=== PATIENT | female | born 1960 | race Caucasian/White ===

== ENCOUNTER → 2017-02-01 | Outpatient (CLI) | payer BC ==
--- NOTE | 2017-02-02 12:07 | MM ---
Reason for exam: screening (asymptomatic). Last mammogram was performed 1 year and 2 months ago. History: Patient is postmenopausal. Family history of breast cancer in mother at age 52. Physical Findings: A clinical breast exam by your physician is recommended on an annual basis and results should be correlated with mammographic findings. MG Screening Mammo w CAD Bilateral CC and MLO view(s) were taken. Prior study comparison: December 14, 2015, bilateral MG screening mammo w CAD. December 01, 2014, bilateral MG screening mammo w CAD. The breast tissue is heterogeneously dense. This may lower the sensitivity of mammography. No significant changes when compared with prior studies. ASSESSMENT: Benign, BI-RAD 2 RECOMMENDATION: Routine screening mammogram of both breasts in 1 year.
== END | disposition home or self-care (01) ==
LOC: RADMAMWWP 13:57
PROVIDERS: ATTEND Obstetrics & Gynecology
DX: Z12.31 Encounter for screening mammogram for malignant neoplasm of breast (principal); Z80.3 Family history of malignant neoplasm of breast

== ENCOUNTER → 2018-03-07 | Outpatient (CLI) | payer BC ==
--- NOTE | 2018-03-08 11:00 | MM ---
Reason for exam: screening (asymptomatic). Last mammogram was performed 1 year and 1 month ago. History: Patient is postmenopausal. Family history of breast cancer in mother at age 52. Physical Findings: A clinical breast exam by your physician is recommended on an annual basis and results should be correlated with mammographic findings. MG 3D Screening Mammo W/Cad Bilateral CC and MLO view(s) were taken. Prior study comparison: February 01, 2017, bilateral MG screening mammo w CAD. December 14, 2015, bilateral MG screening mammo w CAD. The breast tissue is heterogeneously dense. This may lower the sensitivity of mammography. No suspicious abnormality. No significant changes when compared with prior studies. ASSESSMENT: Negative, BI-RAD 1 RECOMMENDATION: Routine screening mammogram of both breasts in 1 year.
== END | disposition home or self-care (01) ==
LOC: RADMAMWWP 09:01
PROVIDERS: ATTEND Obstetrics & Gynecology
DX: Z12.31 Encounter for screening mammogram for malignant neoplasm of breast (principal); Z80.3 Family history of malignant neoplasm of breast
CPT/HCPCS: 77063; 77067

== ENCOUNTER → 2018-09-13 | Outpatient (CLI) | payer BC ==
--- NOTE | 2018-09-13 08:36 | CT ---
EXAMINATION TYPE: CT brain wo con DATE OF EXAM: 09/13/2018 COMPARISON: 04/20/2016 INDICATION: Persistent daily headache DLP: 1121 mGycm, Automated exposure control for dose reduction was used. CONTRAST: None CT of the brain is performed utilizing 3 mm thick sections through the posterior fossa and 3 mm thick sections through the remaining calvarium. Study is performed within 24 hours of arrival to the hosp [facility]. No abnormal hyperdensity is present to suggest an acute intracranial hemorrhage. No mass lesion is evident. No acute infarcts are evident. Ventricles and sulci are appropriate for the patient age. Paranasal sinuses and mastoid air cells within the [id number] are clear. IMPRESSIONS: 1. Normal CT Brain
== END | disposition home or self-care (01) ==
LOC: RADCTMAIN 08:01
PROVIDERS: ATTEND Family Medicine
DX: G44.52 New daily persistent headache (NDPH) (principal); H53.9 Unspecified visual disturbance
CPT/HCPCS: 70450

== ENCOUNTER → 2019-04-17 | Outpatient (CLI) | payer BC ==
--- NOTE | 2019-04-22 09:45 | MM ---
Reason for exam: screening (asymptomatic). Last mammogram was performed 1 year and 1 month ago. History: Patient is postmenopausal. Family history of breast cancer in mother at age 52. Physical Findings: A clinical breast exam by your physician is recommended on an annual basis and results should be correlated with mammographic findings. MG 3D Screening Mammo W/Cad Bilateral CC and MLO view(s) were taken. Prior study comparison: March 07, 2018, bilateral MG 3d screening mammo w/cad. February 01, 2017, bilateral MG screening mammo w CAD. The breast tissue is heterogeneously dense. This may lower the sensitivity of mammography. No significant changes when compared with prior studies. ASSESSMENT: Negative, BI-RAD 1 RECOMMENDATION: Routine screening mammogram of both breasts in 1 year.
== END | disposition home or self-care (01) ==
LOC: RADMAMWWP 16:32
PROVIDERS: ATTEND Obstetrics & Gynecology
DX: Z12.31 Encounter for screening mammogram for malignant neoplasm of breast (principal)
CPT/HCPCS: 77063; 77067

== ENCOUNTER → 2020-07-09 | Outpatient (CLI) | payer BC ==
--- NOTE | 2020-07-09 16:11 | BD ---
EXAMINATION TYPE: Axial Bone Density DATE OF EXAM: 07/09/2020 COMPARISON: NONE CLINICAL HISTORY: 59 YR OLD FEMALE.....ICD-10 CODE: N95.1 POST MENOPAUSAL Height: 63.6 Weight: 152 FRAX RISK QUESTIONS: NOTHING TO NOTE HERE RISK FACTORS HISTORY OF: Active: YES Postmenopausal woman: YES, ABOUT AGE 48 Hyperparathyroidism: NO Adrenal Insufficiency: NO MEDICATIONS: Additional Medications: XANAX, VIT D Additional History: SLEEP ISSUES, ARTHRITIS EXAM MEASUREMENTS: Bone mineral densitometry was performed using the [employer] System. Bone mineral density as measured about the Lumbar spine is: ----- L1-L4(G/cm2): 1.334 T Score Values are as follows: ----- L1: 0.8 ----- L2: 1.2 ----- L3: 1.5 ----- L4: 1.4 ----- L1-L4: 1.3 Bone mineral density FIRST BONE DENSITY........BASELINE STUDY Bone mineral density about the R hip (g/cm2): 0.980 Bone mineral density about the L hip (g/cm2): 0.989 T Score values are as follows: -----R Neck: -0.6 -----L Neck: -0.6 -----R Total: -0.2 -----L Total: -0.1 Bone mineral density BASELINE STUDY FRAX%s: THERE IS A 6.9% CHANCE FOR A MAJOR OSTEOPOROTIC FX AND A 0.3% FOR HIP......PROBABILITY FOR FX IN 10 YRS TIME IMPRESSION: Normal (Values between +1 and -1 indicate normal bone mass). Consider repeating this study in 5 year s or sooner if there is some new clinical indication. NOTE: T-SCORE=SD OF THE YOUNG ADULT MEAN.
--- NOTE | 2020-07-12 10:33 | MM ---
Reason for exam: screening (asymptomatic). Last mammogram was performed 1 year and 3 months ago. History: Patient is postmenopausal. Family history of breast cancer in mother at age 52. Physical Findings: A clinical breast exam by your physician is recommended on an annual basis and results should be correlated with mammographic findings. MG 3D Screening Mammo W/Cad Bilateral CC and MLO view(s) were taken. Prior study comparison: April 17, 2019, bilateral MG 3d screening mammo w/cad. March 07, 2018, bilateral MG 3d screening mammo w/cad. The breast tissue is heterogeneously dense. This may lower the sensitivity of mammography. There is no discrete abnormality. No significant changes when compared with prior studies. ASSESSMENT: Negative, BI-RAD 1 RECOMMENDATION: Routine screening mammogram of both breasts in 1 year.
== END | disposition home or self-care (01) ==
LOC: RADMAMWWP 09:17
PROVIDERS: ATTEND Obstetrics & Gynecology
DX: Z12.31 Encounter for screening mammogram for malignant neoplasm of breast (principal); N95.1 Menopausal and female climacteric states; Z80.3 Family history of malignant neoplasm of breast
CPT/HCPCS: 77063; 77067; 77080

== ENCOUNTER → 2021-07-26 | Outpatient (CLI) | payer BC ==
--- NOTE | 2021-07-27 12:35 | MM ---
Reason for exam: screening (asymptomatic). Last mammogram was performed 1 year and 1 month ago. History: Patient is postmenopausal. Family history of breast cancer in mother at age 52. Took hormonal contraceptives for 10 years. Physical Findings: A clinical breast exam by your physician is recommended on an annual basis and results should be correlated with mammographic findings. MG 3D Screening Mammo W/Cad Bilateral CC and MLO view(s) were taken. Prior study comparison: July 09, 2020, bilateral MG 3d screening mammo w/cad. April 17, 2019, bilateral MG 3d screening mammo w/cad. The breast tissue is heterogeneously dense. This may lower the sensitivity of mammography. Finding: There are indeterminate calcifications in the posterior position of the right breast. New finding since July 09, 2020 and April 17, 2019. ASSESSMENT: Incomplete: need additional imaging evaluation, BI-RAD 0 RECOMMENDATION: Special view mammogram of the right breast. [facility] will attempt to contact patient to return for supplemental views.
== END | disposition home or self-care (01) ==
LOC: RADMAMWWP 09:54
PROVIDERS: ATTEND Obstetrics & Gynecology
DX: Z12.31 Encounter for screening mammogram for malignant neoplasm of breast (principal); Z80.3 Family history of malignant neoplasm of breast; Z78.0 Asymptomatic menopausal state
CPT/HCPCS: 77063; 77067

== ENCOUNTER → 2021-08-01 | Outpatient (CLI) | payer BC ==
--- NOTE | 2021-08-01 09:44 | MM ---
Reason for exam: additional evaluation requested from abnormal screening. Last mammogram was performed less than 1 month ago. History: Patient is postmenopausal. Family history of breast cancer in mother at age 52. Took hormonal contraceptives for 10 years. Physical Findings: Nurse did not find any significant physical abnormalities on exam. MG 3D Work Up W/Cad RT XCCL with magnification, MLO with magnification, XCCM with magnification, and ML view(s) were taken of the right breast. Prior study comparison: July 26, 2021, bilateral MG 3d screening mammo w/cad. July 09, 2020, bilateral MG 3d screening mammo w/cad. The breast tissue is heterogeneously dense. This may lower the sensitivity of mammography. Finding: There are typically benign fine, diffuse/scattered calcifications in the right breast. No suspicious cluster. These results were verbally communicated with the patient and result sheet given to the patient on 08/01/21. ASSESSMENT: Probably benign, BI-RAD 3 RECOMMENDATION: Follow-up diagnostic mammogram of the right breast in 6 months.
== END | disposition home or self-care (01) ==
LOC: RADMAMWWP 08:08
PROVIDERS: ATTEND Obstetrics & Gynecology
DX: R92.8 Other abnormal and inconclusive findings on diagnostic imaging of breast (principal); Z78.0 Asymptomatic menopausal state; Z80.3 Family history of malignant neoplasm of breast
CPT/HCPCS: 77061; 77065

== ENCOUNTER → 2022-01-31 | Outpatient (CLI) | payer BC ==
--- NOTE | 2022-02-01 12:19 | MM ---
Reason for Exam: Follow-up at short interval from prior study. Last screening mammogram was performed 6 month(s) ago. Patient History: Menarche at age 11. First Full-Term at age 22. Postmenopausal. Patient used Hormonal Contraceptives for 10 years. Mother had breast cancer, age 52. Risk Values: Abby 5 year model risk: 3.0%. NCI Lifetime model risk: 12.4%. Prior Study Comparison: 07/09/2020 Bilateral Screening Mammogram, [facility]. 07/26/2021 Bilateral Screening Mammogram, [facility]. 08/01/2021 Right Diagnostic Mammogram, [facility]. Tissue Density: Right: The breast tissue is heterogeneously dense. This may lower the sensitivity of mammography. Findings: Analyzed By CAD. The previously questioned possible faint microcalcifications posteriorly on the MLO view are not identified. No suspicious group of microcalcifications, significant masses, or other discrete abnormality is seen. Patient can return to routine screening exams. Overall Assessment: Negative, BI-RAD 1 Management: Screening Mammogram of both breasts in 6 months. 1. Routine annual screening mammograms both breasts due in 6 months. 2. Patient should continue monthly self breast exams. 3. This exam should not preclude additional follow-up of suspicious palpable abnormalities. Results were given to the patient verbally at the time of exam. Electronically signed and approved by: Cassia Reid M.D. Radiologist
== END | disposition home or self-care (01) ==
LOC: RADMAMWWP 10:22
PROVIDERS: ATTEND Obstetrics & Gynecology
DX: R92.8 Other abnormal and inconclusive findings on diagnostic imaging of breast (principal); Z78.0 Asymptomatic menopausal state
CPT/HCPCS: 77061; 77065

== ENCOUNTER → 2022-08-04 | Outpatient (CLI) | payer BC ==
--- NOTE | 2022-08-07 10:41 | MM ---
Reason for Exam: Screening (asymptomatic). Last screening mammogram was performed 12 month(s) ago. Patient History: Menarche at age 11. First Full-Term at age 22. Postmenopausal. Patient used Hormonal Contraceptives for 10 years. Mother had breast cancer, age 52. Mother tested for BRCA1 outcome was negative. Risk Values: Abby 5 year model risk: 3.0%. NCI Lifetime model risk: 12.4%. Prior Study Comparison: 07/26/2021 Bilateral Screening Mammogram, [facility]. 08/01/2021 Right Diagnostic Mammogram, [facility]. 01/31/2022 Right MG 3D diag mammo w/cad RT, [facility]. Tissue Density: The breast tissue is heterogeneously dense. This may lower the sensitivity of mammography. Findings: Analyzed By CAD. Pattern appears symmetrical and stable. No significant interval change is evident. No suspicious groups of microcalcifications, spiculated or lobular masses, architectural distortion or other secondary signs of malignancy are mammographically apparent. Overall Assessment: Benign, BI-RAD 2 Management: Screening Mammogram of both breasts in 1 year. A negative mammogram report should not preclude additional follow up of suspicious palpable abnormalities. Patient should continue monthly self breast exam. A clinical breast exam by your physician is recommended on an annual basis and results should be correlated with mammographic findings. Electronically signed and approved by: Marc Harper D.O. Radiologis
== END | disposition home or self-care (01) ==
LOC: RADMAMWWP 12:28
PROVIDERS: ATTEND Obstetrics & Gynecology
DX: Z12.31 Encounter for screening mammogram for malignant neoplasm of breast (principal); Z85.3 Personal history of malignant neoplasm of breast; Z78.0 Asymptomatic menopausal state; Z80.3 Family history of malignant neoplasm of breast
CPT/HCPCS: 77063; 77067

== ENCOUNTER → 2023-09-04 | Outpatient (CLI) | payer BC ==
--- NOTE | 2023-09-05 19:50 | MM ---
Reason for Exam: Screening (asymptomatic). Last mammogram was performed 1 year(s) and 1 month(s) ago. Patient History: Menarche at age 11. First Full-Term at age 22. Postmenopausal. Patient used Hormonal Contraceptives for 10 years. Mother had breast cancer, age 52. Mother tested for BRCA1 outcome was negative. Risk Values: Abby 5 year model risk: 3.1%. NCI Lifetime model risk: 12.1%. Prior Study Comparison: 08/01/2021 Right Diagnostic Mammogram, [facility]. 01/31/2022 Right MG 3D diag mammo w/cad RT, [facility]. 08/04/2022 Bilateral MG 3D screening mammo w/cad, [facility]. Tissue Density: The breast tissue is heterogeneously dense. This may lower the sensitivity of mammography. Findings: Analyzed By CAD. There is no suspicious group of microcalcifications or new suspicious mass in either breast. Overall Assessment: Negative, BI-RAD 1 Management: Screening Mammogram of both breasts in 1 year. See note below in regards to patient's increased 5 year Abby score. Patient should continue monthly self-breast exams. A clinical breast exam by your physician is recommended on an annual basis. This exam should not preclude additional follow-up of suspicious palpable abnormalities. Note on Abby scores and lifetime risk: 1. A Abby score greater than 3% is considered moderate risk. If this is the case, consider specialist referral to assess eligibility for a risk reducing agent. 2. If overall lifetime risk for the development of breast cancer is 20% or higher, the patient may qualify for future screening with alternating mammogram and breast MRI. Electronically signed and approved by: Cassia Reid M.D. Radiologist
== END | disposition home or self-care (01) ==
LOC: RADMAMWWP 09:43
PROVIDERS: ATTEND Family Medicine
DX: Z12.31 Encounter for screening mammogram for malignant neoplasm of breast (principal); Z80.3 Family history of malignant neoplasm of breast; Z78.0 Asymptomatic menopausal state
CPT/HCPCS: 77063; 77067